=== PATIENT | female | born 1970 | race African-American/Black ===

== ENCOUNTER 2020-02-12 21:07 | Emergency (ER) | payer OTHER ==
[~2020-02-12] VITALS: Ht 175.3 cm; Wt 80.7 kg
[~2020-02-12 21:07] MED LIST: AZITHROMYCIN 2250 MG PO; CAVAN-FOLATE D1 EACH PO; CIPRO250 M1 PO; MEDROLDOSEPACK PO; NASONEX17 GM NS; NORCO 5-325 TA1 EACH PO; TOBREX5 ML OPHTHALMIC
[2020-02-12] MEDS ORDERED: LISINOPRIL-HCT1 EAC2 PO (21:20)
[2020-02-12] MEDS ORDERED: NORVASC 2.5 MG2.5 M1 PO (21:21)
[2020-02-12 22:01] LABS: ABSOLUTE NEUTROPHILS 5.1 thou/uL (1.4-8.2); BASOPHILS 0.8 % (0.0-2.0); EOSINOPHILS 3.1 % (0.0-3.0); HEMATOCRIT 32.4 % (37.0-47.0); HEMOGLOBIN 10.6 gm/dL (12.0-15.0); LYMPHOCYTES 13.9 % (24.0-44.0); MCH 31.5 pg (26.0-34.0); MCHC 32.8 g/dL (28.0-37.0); MCV 96.2 fL (80.0-100.0); PLATELET COUNT 387 thou/uL (150-400); POLYS 75.2 % (36.0-66.0); RBC 3.37 mil/uL (4.20-5.00); RDW 17.8 % (10.5-14.5); WBC 6.7 thou/uL (4.0-11.0)
[2020-02-12 22:04] LABS: ANION GAP 11 mmol/L (7-16); BUN 7 mg/dL (7-18); CALCIUM 8.9 mg/dL (8.5-10.1); CHLORIDE 102 mmol/L (98-107); CO2 23 mmol/L (21-32); GLUCOSE 97 mg/dL (74-106); POTASSIUM 3.8 mmol/L (3.5-5.1); SODIUM 136 mmol/L (136-145)
[2020-02-12 22:14] LABS: ALBUMIN 3.5 g/dL (3.4-5.0); SGOT 128 U/L (15-37); SGPT 75 U/L (30-65); TOTAL BILIRUBIN 0.3 mg/dL (0.2-1.0); TOTAL PROTEIN 7.3 g/dL (6.4-8.2); TROPONIN-I <0.06 ng/mL (<0.06)
[2020-02-12 23:38] VITALS: BP 143/81
[2020-02-12 23:46] LABS: URINE BILIRUBIN NEGATIVE (Negative); URINE BLOOD 1+ (Negative); URINE CLARITY SL CLOUDY; URINE COLOR YELLOW; URINE GLUCOSE-RANDOM* NEGATIVE (Negative); URINE KETONES NEGATIVE (Negative); URINE LEUKOCYTES-REFLEX TRACE (Negative); URINE NITRITE-REFLEX NEGATIVE (Negative); URINE PROTEIN (DIPSTICK) 1+ (Negative); URINE SPECIFIC GRAVITY >= 1.030 (1.005-1.035); URINE UROBILINOGEN 0.2 E.U./dl (0.2-1.0)
[2020-02-13 00:20] LABS: BACTERIA-REFLEX 1-9 Few /HPF (None Seen); CASTS None Seen /LPF (None Seen); CRYSTALS None Seen /LPF (None Seen); MUCUS >6 Heavy strn/LPF (None Seen); SQUAMOUS >10 Many /LPF (0-3); URINE RBC 3-10 Few /HPF (0-2); URINE WBC-REFLEX 0-5 Rare /HPF (0-5)
--- NOTE | 2020-02-14 07:37 | EKG ---
[facility] [place] [address] ELECTROCARDIOGRAM REPORT Name: CELIA ARIZMENDI Room #: [id number] Admission: 02/12/20 Attend Phys: Discharge: 02/12/20 Date of : 66 Report #: [id number] THIS REPORT FOR: cc: [facility] - Clinic physician unknown [facility] - Clinic physician unknown Jose Ross MD [facility] ~ THIS REPORT FOR: //name// [facility] ED Test Date: 2020-02-12 Test Time: 21:13:47 Pat Name: CELIA ARIZMENDI Department: Room: Gender: F 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[id number] Requested By: Malorie Palma Order Number: [id number] MD: Jose Ross Measurements Intervals [place] Rate: 102 P: 55 WI: 146 QRS: 0 QRSD: 72 T: 33 QT: 358 QTc: 467 Interpretive Statements Sinus tachycardia Probable left atrial enlargement Probable left ventricular hypertrophy Baseline wander in lead(s) III No previous ECG available for comparison Electronically Signed On 02-14-2020 7:37:05 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
== END 2020-02-12 23:38 | disposition home or self-care (01) ==
LOC: ER 21:07
PROVIDERS: Student in an Organized Health Care Education/Training Program
DX: R07.89 Other chest pain (principal); I10 Essential (primary) hypertension; Z79.899 Other long term (current) drug therapy; Z88.5 Allergy status to narcotic agent; Z88.8 Allergy status to other drugs, medicaments and biological substances